=== PATIENT | male | born 1970 | race Caucasian/White ===

== ENCOUNTER → 2017-02-08 | Outpatient (CLI) | payer BC ==
[~2017-02-08] VITALS: Ht 182.9 cm; Wt 99.8 kg
[~2017-02-08] MED LIST: AMLO10TA2 PO; ATOR20TA66 PO; CARV25TA PO; FUROSEMIDE 40 MG/4 ML INJ (LASIX) IV ONE; FUROSEMIDE 40 MG/4 ML INJ (LASIX) ONE; INSU100V5 SQ; LISI10TA2 PO; NS IV 500 ML 500 ML IV ONE; diphenhydrAMINE 25 MG TAB (BENADRYL) PO ONE
[2017-02-08 16:07] VITALS: BP 123/71
[2017-02-08 16:25] VITALS: BP 123/68
[2017-02-08 16:26] VITALS: BP 137/76
[2017-02-08 18:00] VITALS: BP 132/75
[2017-02-08 18:02] VITALS: BP 132/75
[2017-02-08 20:36] VITALS: BP 143/76
[2017-02-08 21:33] LABS: BASOPHILS % (AUTO) 0 % (0-10); EOSINOPHILS # (AUTO) 0.1 10^3/uL (0.0-0.3); EOSINOPHILS % (AUTO) 2 % (0-10); LYMPHOCYTES # (AUTO) 0.5 X 10^3 (1.0-4.0); LYMPHOCYTES % (AUTO) 10 % (12-44); MEAN CORPUSCULAR HEMOGLOBIN 24 PG (25-34); MEAN CORPUSCULAR HGB CONC 31 G/DL (32-36); MEAN CORPUSCULAR VOLUME 76 FL (80-99); MEAN PLATELET VOLUME 9.2 FL (7.4-10.4); MONOCYTES # (AUTO) 0.5 X 10^3 (0.0-1.0); MONOCYTES % (AUTO) 10 % (0-12); NEUTROPHILS # (AUTO) 4.2 X 10^3 (1.8-7.8); NEUTROPHILS % (AUTO) 78 % (42-75); PLATELET COUNT 211 10^3/uL (130-400); RED CELL DISTRIBUTION WIDTH 16.8 % (10.0-14.5); WHITE BLOOD COUNT 5.4 10^3/uL (4.3-11.0)
[2017-02-09 00:26] VITALS: BP 143/76
== END ==
LOC: SDC 14:50
PROVIDERS: ATTEND Nurse Practitioner Family
DX: D64.9 Anemia, unspecified (principal)
CPT/HCPCS: 36415; 85025; 86850; 86900; 86901; 86920

== ENCOUNTER 2017-03-04 14:00 | Outpatient (RCR) | payer BC ==
[2017-02-28] MEDS: ACETAMINOPHEN 325 MG TABLET/CAPLET (TYLENOL) PO SCH (13:01)
[2017-02-28] MEDS: diphenhydrAMINE 50 MG/ML INJ (BENADRYL) IV SCH (13:01)
[2017-02-28 13:08] VITALS: BP 118/68
[2017-02-28] MEDS: SODIUM FERRIC GLUCONATE COMPLEX IV SCH ×2 (13:22)
[2017-02-28] MEDS: SODIUM CHLORIDE IV SCH ×2 (13:22)
[2017-03-02] MEDS: diphenhydrAMINE 50 MG/ML INJ (BENADRYL) IV SCH (14:10)
[2017-03-02] MEDS: ACETAMINOPHEN 325 MG TABLET/CAPLET (TYLENOL) PO SCH (14:10)
[2017-03-02] MEDS: SODIUM FERRIC GLUCONATE COMPLEX IV SCH ×2 (14:12)
[2017-03-02] MEDS: SODIUM CHLORIDE IV SCH ×2 (14:12)
[2017-03-02 14:14] VITALS: BP 118/68
[~2017-03-04] VITALS: Ht 182.9 cm; Wt 99.8 kg
[~2017-03-04 14:00] MED LIST changes: -FUROSEMIDE 40 MG/4 ML INJ (LASIX) IV ONE; -FUROSEMIDE 40 MG/4 ML INJ (LASIX) ONE; -NS IV 500 ML 500 ML IV ONE; -diphenhydrAMINE 25 MG TAB (BENADRYL) PO ONE
[2017-03-04] MEDS ORDERED: SODIUM CHLORIDE IV NR ×2 (14:05)
[2017-03-04] MEDS ORDERED: SODIUM FERRIC GLUCONATE COMPLEX IV NR ×2 (14:05)
[2017-03-04] MEDS: diphenhydrAMINE 50 MG/ML INJ (BENADRYL) IV SCH (14:08)
[2017-03-04] MEDS: ACETAMINOPHEN 325 MG TABLET/CAPLET (TYLENOL) PO SCH (14:08)
[2017-03-04 14:17] VITALS: BP 141/77
[2017-03-04 15:16] VITALS: BP 141/77
== END 2017-05-29 | disposition home or self-care (01) ==
LOC: SDC 14:00
PROVIDERS: ATTEND Nurse Practitioner Family
DX: D50.9 Iron deficiency anemia, unspecified (principal)
CPT/HCPCS: 96365; 96374

== ENCOUNTER → 2017-03-07 | Outpatient (CLI) | payer BC ==
--- NOTE | 2017-03-07 16:33 | Diagnostic Imaging Report ---
Renal ultrasound. INDICATION: Chronic renal disease. FINDINGS: The right kidney is 11.8 cm and the left kidney is 11.8 cm in length. There is no hydronephrosis or focal lesion. The urinary bladder appears unremarkable. There is a mufcjxoh-vw-ykrik amount of ascites. IMPRESSION: Cxtlenor-pc-ehrzk amount of ascites. No hydronephrosis. Dictated by: Dictated on workstation # [id number]
== END ==
LOC: RAD 14:47
PROVIDERS: ATTEND Nurse Practitioner
DX: R18.8 Other ascites (principal); N18.4 Chronic kidney disease, stage 4 (severe)
CPT/HCPCS: 76770

== ENCOUNTER → 2017-03-10 | Outpatient (CLI) | payer BC ==
[~2017-03-10] VITALS: Ht 182.9 cm; Wt 104.3 kg
[~2017-03-10] MED LIST changes: +LIDOCAINE 1% INJ 20 ML (XYLOCAINE) VIAL INJ ONE
[2017-03-10 11:34] VITALS: BP 123/69
[2017-03-10 11:47] VITALS: BP 116/68
[2017-03-10 12:02] VITALS: BP 103/51
[2017-03-10 12:08] VITALS: BP 94/48
[2017-03-10 12:12] VITALS: BP 110/63
[2017-03-10 12:18] LABS: ALBUMIN 3.7 G/DL (3.2-4.5); BILIRUBIN,TOTAL 1.1 MG/DL (0.1-1.0); CALCIUM 8.4 MG/DL (8.5-10.1); CREATININE SERUM 2.98 MG/DL (0.60-1.30); POTASSIUM 4.3 MMOL/L (3.6-5.0); TOTAL PROTEIN 6.3 G/DL (6.4-8.2)
--- NOTE | 2017-03-10 13:58 | Diagnostic Imaging Report ---
EXAMINATION: Ultrasound-guided paracentesis. INDICATION: Ascites. CONSENT: Informed consent was obtained from the patient. The risks, benefits, potential complications and alternatives were reviewed and all questions answered to the patient's satisfaction. The patient's vital signs, cardiac rhythm, and pulse oximetry with observed throughout the procedure by qualified nursing personnel. Sedation/Medications: None.. FINDINGS: ascites. PROCEDURE: After sterile preparation and draping, 1% lidocaine was utilized for local anesthesia. Following sterile preparation and local anesthetic and using 2 D real-time ultrasound for guidance, a 6.5 Fr sheath on a trocar needle was introduced into the peritoneal fluid collection in the right lower quadrant from an anterior approach. Images of needle position documented. Initial fluid return was thin, serous fluid. The sheath was advanced into the deepest fluid pocket and a total of 0.5 liters of michelle-colored fluid was then evacuated from the peritoneum without difficulty. Fluid was submitted to the laboratory. The patient's blood pressure decreased slightly with no symptoms however. Fluid aspiration was stopped when the blood pressure decreased. There is otherwise no complications. IMPRESSION: Successful ultrasound guided paracentesis, for a total of 0.5 L aspirated. No more fluid was aspirated as the blood pressure started to drop at this point. The patient however was asymptomatic. Dictated by: Dictated on workstation # [id number]
[2017-03-10 14:58] LABS: GLUCOSE,BODY FLUID 130 MG/DL; LDH,BODY FLUID 130 U/L; TOTAL PROTEIN,BODY FLUID 3.7 G/DL
== END ==
LOC: RAD 11:08
PROVIDERS: ATTEND Family Medicine
DX: R18.8 Other ascites (principal); D64.9 Anemia, unspecified
CPT/HCPCS: 36415; 49083; 76942; 80053; 82150; 82945; 83615; 84157; 85014; 85018; 87070; 87075; 87101; 87116; 87205; 88112; 88305; 89051

== ENCOUNTER → 2017-03-17 | Outpatient (CLI) | payer BC ==
[~2017-03-17] VITALS: Ht 182.9 cm; Wt 108.9 kg
[2017-03-17] VITALS (9 sets, daily range): BP systolic 120–149; BP diastolic 70–82
[~2017-03-17] MED LIST changes: +FUROSEMIDE 40 MG/4 ML INJ (LASIX) IV ONE; +FUROSEMIDE 40 MG/4 ML INJ (LASIX) ONE; -LIDOCAINE 1% INJ 20 ML (XYLOCAINE) VIAL INJ ONE; +NS IV 500 ML 500 ML IV ONE; +diphenhydrAMINE 25 MG TAB (BENADRYL) PO ONE; +diphenhydrAMINE 50 MG/ML INJ (BENADRYL) IV PRN
[2017-03-18 09:39] LABS: BASOPHILS % (AUTO) 1 % (0-10); EOSINOPHILS # (AUTO) 0.1 10^3/uL (0.0-0.3); EOSINOPHILS % (AUTO) 2 % (0-10); LYMPHOCYTES # (AUTO) 0.5 X 10^3 (1.0-4.0); LYMPHOCYTES % (AUTO) 11 % (12-44); MEAN CORPUSCULAR HEMOGLOBIN 24 PG (25-34); MEAN CORPUSCULAR HGB CONC 31 G/DL (32-36); MEAN CORPUSCULAR VOLUME 78 FL (80-99); MEAN PLATELET VOLUME 9.5 FL (7.4-10.4); MONOCYTES # (AUTO) 0.4 X 10^3 (0.0-1.0); MONOCYTES % (AUTO) 9 % (0-12); NEUTROPHILS # (AUTO) 3.7 X 10^3 (1.8-7.8); NEUTROPHILS % (AUTO) 78 % (42-75); PLATELET COUNT 205 10^3/uL (130-400); RED BLOOD COUNT 3.82 10^6/uL (4.35-5.85); RED CELL DISTRIBUTION WIDTH 18.6 % (10.0-14.5); WHITE BLOOD COUNT 4.8 10^3/uL (4.3-11.0)
== END ==
LOC: SDC 14:08
PROVIDERS: ATTEND Nurse Practitioner Family
DX: D64.9 Anemia, unspecified (principal)
CPT/HCPCS: 86850; 86900; 86901; 86920

== ENCOUNTER → 2017-03-29 | Outpatient (CLI) | payer BC ==
[~2017-03-29] MED LIST changes: -FUROSEMIDE 40 MG/4 ML INJ (LASIX) IV ONE; -FUROSEMIDE 40 MG/4 ML INJ (LASIX) ONE; -NS IV 500 ML 500 ML IV ONE; -diphenhydrAMINE 25 MG TAB (BENADRYL) PO ONE; -diphenhydrAMINE 50 MG/ML INJ (BENADRYL) IV PRN
--- NOTE | 2017-03-31 07:52 | ECHOCARDIOGRAPHY REPORT ---
DATE OF SERVICE: 03/29/2017 A 2D ECHOCARDIOGRAM REFERRING PHYSICIAN: Cheli Gaines MD MEASUREMENT: LVID end diastolic 6.3. IVS thickness 1.3. LVPW thickness 1.3. Left atrial diameter 6.0. Ejection fraction 45% to 50%. FINDINGS: 1. Technical quality is good. 2. The left ventricle is prominent with mild diffuse left ventricular hypokinesia. Systolic function is reduced. Estimated ejection fraction 45% to 50%. 3. The left atrium is dilated. No clot or thrombus were seen within the left atrium. 4. The right atrium and right ventricle are normal in size. No clot or thrombus were seen within the right side. 5. Aortic valve evaluation showed bicuspid aortic valve with mild aortic regurgitation, Doppler across the aortic valve estimated the peak gradient of 20 mmHg, mean gradient of 11 mmHg. No significant aortic valve stenosis was noted. The aortic root is measured at 5.8 cm, which is dilated. 6. Tricuspid valve is normal in morphology with mild tricuspid regurgitation noted by color Doppler flow. Doppler across the tricuspid valve estimated pulmonary artery pressure of 25 plus right atrial pressure. 7. Pulmonic valve is functioning normally. 8. No pericardial effusion. CONCLUSION: 1. Dilated aortic root measuring up to 5.8 cm. 2. Bicuspid aortic valve with mild aortic regurgitation, aortic valve sclerosis, no aortic stenosis. 3. Prominent left ventricle with mild diffuse left ventricular hypokinesia, estimated ejection fraction of 45% to 50%. 4. Mild mitral and tricuspid regurgitation. 5. Estimated pulmonary artery pressure of 35 mmHg. 6. I recommended evaluating CT scan of the thoracic aorta with IV contrast. Job ID: [id number] DocumentID: [id number] Dictated Date: 03/30/2017 14:58:09 Sort Supervisor Date: 03/30/2017 18:50:18 Dictated By: WESTON LEMA MD
== END ==
LOC: CARD 10:19
PROVIDERS: ATTEND Internal Medicine Cardiovascular Disease
DX: I25.10 Atherosclerotic heart disease of native coronary artery without angina pectoris (principal); I71.9 Aortic aneurysm of unspecified site, without rupture; I63.9 Cerebral infarction, unspecified; N18.9 Chronic kidney disease, unspecified; Z83.3 Family history of diabetes mellitus; Z82.49 Family history of ischemic heart disease and other diseases of the circulatory system

== ENCOUNTER 2017-04-05 12:15 | Outpatient (RCR) | payer BC ==
[2017-03-28 12:45] VITALS: BP 135/73
[2017-03-28] MEDS: ACETAMINOPHEN 325 MG TABLET/CAPLET (TYLENOL) PO SCH (13:02)
[2017-03-28] MEDS: IRON SUCROSE 250 MG/NS 100 ML IVPB IV SCH ×2 (13:19)
[2017-03-28] MEDS: diphenhydrAMINE 50 MG/ML INJ (BENADRYL) IV SCH (13:51)
[~2017-04-05] VITALS: Ht 182.9 cm; Wt 108.9 kg
[~2017-04-05 12:15] MED LIST changes: +ACETAMINOPHEN 325 MG TABLET/CAPLET (TYLENOL) ONE; +diphenhydrAMINE 50 MG/ML INJ (BENADRYL) ONE
[2017-04-05] MEDS: diphenhydrAMINE 50 MG/ML INJ (BENADRYL) IV SCH (12:45)
[2017-04-05] MEDS: ACETAMINOPHEN 325 MG TABLET/CAPLET (TYLENOL) PO SCH (12:45)
[2017-04-05] MEDS: IRON SUCROSE 250 MG/NS 100 ML IVPB IV SCH ×2 (12:46)
[2017-04-05 13:30] VITALS: BP 145/79
== END 2017-06-26 | disposition home or self-care (01) ==
LOC: SDC 12:15
PROVIDERS: ATTEND Family Medicine
DX: D50.9 Iron deficiency anemia, unspecified (principal)
CPT/HCPCS: 96365; 96374

== ENCOUNTER 2017-05-29 20:02 | Emergency (ER) | payer BC ==
[~2017-05-29] VITALS: Ht 182.9 cm; Wt 108.9 kg
[~2017-05-29 20:02] MED LIST changes: -ACETAMINOPHEN 325 MG TABLET/CAPLET (TYLENOL) ONE; -diphenhydrAMINE 50 MG/ML INJ (BENADRYL) ONE
[2017-05-29 21:38] LABS: BASOPHILS # (AUTO) 0.1 10^3/uL (0.0-0.1); BASOPHILS % (AUTO) 1 % (0-10); EOSINOPHILS # (AUTO) 0.1 10^3/uL (0.0-0.3); EOSINOPHILS % (AUTO) 1 % (0-10); LYMPHOCYTES # (AUTO) 0.5 X 10^3 (1.0-4.0); LYMPHOCYTES % (AUTO) 8 % (12-44); MEAN CORPUSCULAR HEMOGLOBIN 25 PG (25-34); MEAN CORPUSCULAR HGB CONC 32 G/DL (32-36); MEAN CORPUSCULAR VOLUME 79 FL (80-99); MEAN PLATELET VOLUME 9.9 FL (7.4-10.4); MONOCYTES # (AUTO) 0.7 X 10^3 (0.0-1.0); MONOCYTES % (AUTO) 11 % (0-12); NEUTROPHILS # (AUTO) 4.9 X 10^3 (1.8-7.8); NEUTROPHILS % (AUTO) 78 % (42-75); PLATELET COUNT 243 10^3/uL (130-400); RED BLOOD COUNT 3.99 10^6/uL (4.35-5.85); RED CELL DISTRIBUTION WIDTH 16.5 % (10.0-14.5); WHITE BLOOD COUNT 6.3 10^3/uL (4.3-11.0)
[2017-05-29 21:41] LABS: INR 1.4 (0.8-1.4); PROTHROMBIN TIME PATIENT 16.5 SEC (12.2-14.7)
[2017-05-29 21:53] LABS: ALBUMIN 3.4 GM/DL (3.2-4.5); BILIRUBIN,TOTAL 0.9 MG/DL (0.1-1.0); CALCIUM 7.7 MG/DL (8.5-10.1); CREATININE SERUM 3.12 MG/DL (0.60-1.30); MAGNESIUM 2.2 MG/DL (1.8-2.4); TOTAL PROTEIN 6.1 GM/DL (6.4-8.2)
[2017-05-29] MEDS ORDERED: LABETALOL HCL 20 MG/4 ML VIAL IV ONE (23:00)
--- NOTE | 2017-05-29 23:29 | ED General ---
General Chief Complaint: Respiratory Problems Stated Complaint: STOMACH BLOATING/HARD TO BREATHE/KIDNEY ISSUES Nursing Triage Note: PT STATES HE IS HAVING ABD SWELLING FOR THE PAST COUPLE OF DAYS. PT STATES HE HAS BEEN TAKING LASIX BUT THEY HAVEN'T BEEN WORKING. PT STATES SINCE ABD IS SWELLING PT HAVING DIFFICULTY BREATHING. Nursing Sepsis Screen: No Definite Risk Source of Information: Patient, Other (FEMALE FRIEND) History of Present Illness Time Seen by Provider: 21:00 Initial Comments PT ARRIVES VIA POV FROM HOME C/O ABDOMINAL SWELLING X 1 WEEK SWELLING IS MUCH WORSE THE LAST COUPLE OF DAYS PT STATES SWELLING IS CAUSING HIM TO HAVE DIFFICULTY BREATHING NO CHEST PAIN STATES HE HAS BEEN DRINKING LOTS OF WATER, BUT HAS HAD MINIMAL URINE OUTPUT PT STATES HE HAS GAINED 35 LBS IN THE LAST 1 1/2 WEEKS HAS BEEN LAYING DOWN AND ELEVATING HIS LEGS ALL WEEK, SO DOES NOT HAVE SIGNIFICANT SWELLING IN HIS LEGS--HAS ALL GONE TO HIS ABDOMEN + ORTHOPNEA PT HAS AN AUTOIMMUNE KIDNEY DISEASE / GLOMERULONEPHRITIS--PT DOES NOT KNOW NAME OF DISEASE SEES DR. Carlson" BUT IS NOT ON DIALYSIS YET CREATININE HAS BEEN IN THE 2.5-2.9 RANGE PT STATES HE HAD IT THIS BAD A COUPLE OF MONTHS AGO, AND PT TREATED HIMSELF WITH LARGE DOSES OF LASIX, AND LOST 25 LBS. OF FLUID. WAS THEN GIVEN RX FOR LASIX 20 MG 1 DAILY PRN SWELLING/WEIGHT GAIN PT STATES HE SAW [facility] ON Tuesday05/27/[address] BARILLAS'S OFFICE AND WAS TOLD TO TAKE 2 PILLS OF LASIX A DAY--TOOK 2 PILLS ON TUESDAY AND 2 PILLS ON TUESDAY, BUT NONE TODAY, BECAUSE IT WAS NOT HELPING AT ALL, AND GETTING WORSE. PCP: DR. BARILLAS AUTOMOTIVE TIRE TESTER: DR. LEMA TRACTION POWER ENGINEER: DR. Carlson" IN [place] [facility]AT[facility]: DR. BARRY Allergies and Home Medications Allergies Coded Allergies: No Known Drug Allergies (Unverified , 02/08/17) Home Medications Amlodipine Besylate 10 Mg Tablet, 10 MG PO DAILY, (Reported) Atorvastatin Calcium 20 Mg Tablet, 20 MG PO DAILY, (Reported) Carvedilol 25 Mg Tablet, 25 MG PO BID, (Reported) Insulin Determir 1,000 Units/10 Ml Soln, 12 UNITS SQ BID, (Reported) Lisinopril 10 Mg Tablet, 10 MG PO DAILY, (Reported) Constitutional: see HPI, No chills, No diaphoresis, No dizziness, No fever, weight gain EENTM: no symptoms reported Respiratory: see HPI, No cough, dyspnea on exertion, orthopnea, short of breath Cardiovascular: see HPI, No chest pain, edema, No palpitations, No syncope Gastrointestinal: see HPI, abdominal pain, No nausea, No vomiting Genitourinary: see HPI, decreased output Musculoskeletal: see HPI, other (LEG SWELLING) Skin: pruritus, rash (PT STATES RASH IS FROM SCRATCHING) Psychiatric/Neurological: No Symptoms Reported Hematologic/Lymphatic: Anemia Past Xusxyib-Ievven-Dgzjgw Hx Patient Social History Alcohol Use: Past History (HISTORY OF MODERATE USE IN PAST) Recreational Drug Use: No Smoking Status: Current Everyday Smoker (2 PPD) Type Used: Cigarettes 2nd Hand Smoke Exposure: No Recent Foreign Travel: No Contact w/Someone Who Travel: No Recent Infectious Disease Expo: No Recent Hopitalizations: No (PT GOES TO DR. THAO WEEKLY FOR BLOOD WORK) Seasonal Allergies Seasonal Allergies: Yes Surgeries HX Surgeries: Yes (EYE SURGERY FOR RETINAL BLEEDING BILATERALLY) Surgeries: Eye Surgery Respiratory Hx Respiratory Disorders: No Cardiovascular Hx Cardiac Disorders: Yes (THORACIC AORTIC ANEURYSM--NO REPAIR; STATES HE HAD A HEART ATTACK AFTER HIS STROKE AND/OR AFTER GI BLEED) Cardiac Disorders: Aneurysm, Chronic Edema/Swelling, Coronary Artery Disease, Heart Attack, High Cholesterol, Hypertension Neurological Hx Neurological Disorders: Yes (CVA WITH RIGHT SIDE PARALYSIS--RESOLVED) Neurological Disorders: Stroke Reproductive System Hx Reproductive Disorders: No Genitourinary Hx Genitourinary Disorders: Yes (CHRONIC RENAL FAILURE; UNKNOWN TYPE OF AUTO- IMMUNE GLOMERULONEPHRITIS) Genitourinary Disorders: Kidney Infection, Renal Failure Gastrointestinal Hx Gastrointestinal Disorders: Yes (GI BLEED FROM STEROIDS TO TREAT KIDNEY DISEASE) Gastrointestinal Disorders: Gastrointestinal Bleed, Ulcer Musculoskeletal Hx Musculoskeletal Disorders: No Endocrine Hx Endocrine Disorders: Yes Endocrine Disorders: Diabetes, Insulin dep HEENT HX ENT Disorders: Yes (RETINAL BLEEDS BILATERALLY) Cancer Hx Cancer: No Psychosocial Hx Psychiatric Problems: No Integumentary HX Skin/Integumentary Disorder: Yes Skin/Integumentary Disorders: Pruritis, Recent Skin Changes (RASH / ITCHING) Blood Transfusions Hx Blood Disorders: Yes (pt reports hx of several blood transfusion r/t ulcers / GI BLEEDS. ALSO ANEMIA DUE TO CHRONIC RENAL FAILURE) Adverse Reaction to a Blood Tr: No Physical Exam Vital Signs Vital Sign - Last 12Hours 05/29/17 20:26 Temp 97.8 Pulse 83 Resp 20 B/P (MAP) 140/79 Pulse Ox 99 O2 Delivery Room Air Capillary Refill : Less Than 3 Seconds General Appearance: Obese (ABDOMEN IS VERY LARGE AND DISTENDED), Other ( DYSPENIC ON MINMAL EXERTION) Respiratory: Decreased Breath Sounds (IN BASES ), Other (DYSPNEIC ON MINIMAL EXERTION) Cardiovascular: Regular Rate, Rhythm, No Murmur, Other (1+ EDEMA BILATERALY, WITH PULSES 1+ / 4 BILATERAL FEET) Gastrointestinal: Distended (MASSIVELY DISTENDED/ASCITES/FIRM. ), Tenderness ( MINIMAL DIFFUSE TENDERNESS), Other (UNABLE TO DETERMINE IF ORGANOMEGALY OR MASS IS PRESENT DUE TO ABDOMEN DISTENTION) Back: No CVA Tenderness Extremity: Normal Range of Motion, Non Tender, Pedal Edema (1+ BILATERALLY) Neurologic/Psychiatric: Alert, Oriented x3, No Motor/Sensory Deficits, Normal Mood/Affect, adjunct professor II-XII Norm as Tested Skin: Warm/Dry, Pallor (SALLOW), Rash (HAS MULTIPLE ERYTHEMATOUS PAPULES TO ABDOMEN AND CHEST--PT STATES IS FROM SCRATCHING. ) Progress/Results/Core Measures Results/Orders Lab Results Laboratory Tests Test 05/29/17 21:12 05/30/17 00:15 Range/Units White Blood Count 6.3 4.3-11.0 10^3/uL Red Blood Count 3.99 L 4.35-5.85 10^6/uL Hemoglobin 10.1 L 13.3-17.7 G/DL Hematocrit 32 L 40-54 % Mean Corpuscular Volume 79 L 80-99 FL Mean Corpuscular Hemoglobin 25 25-34 PG Mean Corpuscular Hemoglobin Concent 32 32-36 G/DL Red Cell Distribution Width 16.5 H 10.0-14.5 % Platelet Count 243 130-400 10^3/uL Mean Platelet Volume 9.9 7.4-10.4 FL Neutrophils (%) (Auto) 78 H 42-75 % Lymphocytes (%) (Auto) 8 L 12-44 % Monocytes (%) (Auto) 11 0-12 % Eosinophils (%) (Auto) 1 0-10 % Basophils (%) (Auto) 1 0-10 % Neutrophils # (Auto) 4.9 1.8-7.8 X 10^3 Lymphocytes # (Auto) 0.5 L 1.0-4.0 X 10^3 Monocytes # (Auto) 0.7 0.0-1.0 X 10^3 Eosinophils # (Auto) 0.1 0.0-0.3 10^3/uL Basophils # (Auto) 0.1 0.0-0.1 10^3/uL Prothrombin Time 16.5 H 12.2-14.7 SEC INR Comment 1.4 0.8-1.4 Activated Partial Thromboplast Time 30 24-35 SEC Sodium Level 139 135-145 MMOL/L Potassium Level 4.0 3.6-5.0 MMOL/L Chloride Level 113 H 98-107 MMOL/L Carbon Dioxide Level 12 L 21-32 MMOL/L Anion Gap 14 5-14 MMOL/L Blood Urea Nitrogen 84 H 7-18 MG/DL Creatinine 3.12 H 0.60-1.30 MG/DL Estimat Glomerular Filtration Rate 22 BUN/Creatinine Ratio 27 Glucose Level 144 H 70-105 MG/DL Calcium Level 7.7 L 8.5-10.1 MG/DL Magnesium Level 2.2 1.8-2.4 MG/DL Total Bilirubin 0.9 0.1-1.0 MG/DL Aspartate Amino Transf (AST/SGOT) 12 5-34 U/L Alanine Aminotransferase (ALT/SGPT) 12 0-55 U/L Alkaline Phosphatase 110 40-136 U/L Total Protein 6.1 L 6.4-8.2 GM/DL Albumin 3.4 3.2-4.5 GM/DL Amylase Level 41 25-125 U/L Lipase 28 8-78 U/L Urine Color YELLOW Urine Clarity CLEAR Urine pH 5 5-9 Urine Specific [place] 1.020 1.016-1.022 Urine Protein 3+ H NEGATIVE Urine Glucose (UA) NEGATIVE NEGATIVE Urine Ketones NEGATIVE NEGATIVE Urine Nitrite NEGATIVE NEGATIVE Urine Bilirubin NEGATIVE NEGATIVE Urine Urobilinogen NORMAL NORMAL MG/DL Urine Leukocyte Esterase 1+ H NEGATIVE Urine RBC (Auto) 3+ H NEGATIVE Urine RBC RARE /HPF Urine WBC 5-10 H /HPF Urine Squamous Epithelial Cells RARE /HPF Urine Crystals NONE /LPF Urine Bacteria TRACE /HPF Urine Casts PRESENT /LPF Urine Hyaline Casts RARE /LPF Urine Mucus NEGATIVE /LPF Urine Other FEW SPERM H /HPF Urine Yeast FEW H /HPF Urine Culture Indicated YES My Orders Orders - JD,JATIN K DO Saline Lock/Iv-Start (05/29/17 21:25) Amylase (05/29/17 21:25) Cbc With Automated Diff (05/29/17 21:25) Comprehensive Metabolic Panel (05/29/17 21:25) Lipase (05/29/17 21:25) Magnesium (05/29/17 21:25) Protime With Inr (05/29/17 21:25) Partial Thromboplastin Time (05/29/17 21:25) Ua Culture If Indicated (05/29/17 21:25) Acute Abd Series (05/29/17 21:25) Labetalol Injection (Normodyne Injection (05/29/17 23:00) Nitroglycerin Ointment (Nitrobid Ointme (05/30/17 00:00) Labetalol Injection (Normodyne Injection (05/30/17 00:30) Urine Culture (05/30/17 00:15) Medications Given in ED Current Medications Medications Dose Ordered Sig/Shima Route Start Time Stop Time Status Last Admin Dose Admin Labetalol HCl 20 mg ONCE ONCE IV 05/29/17 23:00 05/29/17 23:01 DC 05/29/17 23:06 20 MG Labetalol HCl 20 mg ONCE ONCE IV 05/30/17 00:30 05/30/17 00:31 DC 05/30/17 00:25 20 MG Nitroglycerin 2 inch ONCE ONCE TOP 05/30/17 00:00 05/30/17 00:01 DC 05/29/17 23:51 2 INCH Vital Signs/I&O Vital Sign - Last 12Hours 05/29/17 05/30/17 20:26 00:35 Temp 97.8 Pulse 83 75 Resp 20 15 B/P (MAP) 140/79 129/81 Pulse Ox 99 97 O2 Delivery Room Air Room Air Blood Pressure Mean: 99 Progress Note : Progress Note BP DOWN WITH MEDICATIONS UNEVENTFUL ER STAY Diagnostic Imaging Comments ACUTE ABDOMEN XRAYS--CHF, ASCITES. NO BOWEL OBSTRUCTION--PENDING RADIOLOGIST REVIEW Reviewed: Reviewed by Me Departure Communication Progress Notes 2253--SPOKE WITH DR. BARILLAS, ADVISES TRANSFER PT NEEDS NEPHROLOGY SERVICES AVAILABLE 2299--CALLED [facility] DIRECT CALL, MESSAGE LEFT [id number]--SPOKE WITH [facility] DIRECT CALL. PAGING TRACTION POWER ENGINEER 2309--SPOKE WITH DR. DELGADILLO, HE RECOMMENDS HOSPITALIST ADMIT 2320--SPOKE WITH DR. MATIAS, HOSPITALIST. HE ACCEPTS PT FOR TRANSFER. DOES NOT ADVISE ANY FURTHER TREATMENT AT THIS TIME. Impression Impression: Primary Impression: Renal failure (ARF), acute on chronic Additional Impressions: Fluid overload Uncontrolled hypertension Disposition: 02 XFER SHT-TRM HOSP Condition: Improved Departure-Patient Inst. Referrals: ESME BARILLAS MD (PCP/Family) Primary Care Physician JATIN MILES DO May 29, 2017 23:29
[2017-05-30] MEDS ORDERED: NITROGLYCERIN 2% OINT 1 GM UNIT DOSE PACKET TOP ONE
[2017-05-30 00:22] LABS: BILIRUBIN,URINE NEGATIVE (NEGATIVE); KETONES,URINE NEGATIVE (NEGATIVE); LEUKOCYTE ESTERASE ,URINE 1+ (NEGATIVE); NITRITE,URINE NEGATIVE (NEGATIVE); PH,URINE 5 (5-9); PROTEIN,URINE 3+ (NEGATIVE); UROBILINOGEN,URINE NORMAL (NORMAL)
[2017-05-30] MEDS ORDERED: LABETALOL HCL 20 MG/4 ML VIAL IV ONE (00:30)
[2017-05-30 00:31] LABS: HYALINE CASTS, URINE RARE /LPF; SQUAMOUS EPITHELIAL CELL,UR RARE /HPF
[2017-05-30 00:32] LABS: YEAST,URINE FEW /HPF
[2017-05-30 00:45] VITALS: BP 129/81
--- NOTE | 2017-05-30 07:54 | Diagnostic Imaging Report ---
Indication: Abdominal pain and bloating over the last several days. Discussion: AP view of the chest and supine and upright views of the abdomen were obtained, no comparison. Borderline cardiomegaly is noted. Mild prominence of the central pulmonary vascularity. No nora heart failure identified. No focal consolidation, pleural fluid, or pneumothorax. No evidence of pneumatosis or pneumoperitoneum. There is gas and stool noted throughout the colon. No significant constipation. No obstruction. No abnormal small bowel loops identified. No acute osseous abnormality or pathologic calcification identified. Impression: 1. No acute cardiopulmonary process. 2. Unremarkable bowel gas pattern. Dictated by: Dictated on workstation # [id number]
== END 2017-05-30 00:47 | disposition short-term general hospital (02) ==
LOC: EDUNIT# 20:02 → ER 20:04
DX: N17.9 Acute kidney failure, unspecified (principal); E11.22 Type 2 diabetes mellitus with diabetic chronic kidney disease; I12.9 Hypertensive chronic kidney disease with stage 1 through stage 4 chronic kidney disease, or unspecified chronic kidney disease; N18.9 Chronic kidney disease, unspecified; E78.00 Pure hypercholesterolemia, unspecified; I25.10 Atherosclerotic heart disease of native coronary artery without angina pectoris; I25.2 Old myocardial infarction; Z79.4 Long term (current) use of insulin; Z86.73 Personal history of transient ischemic attack (TIA), and cerebral infarction without residual deficits; Z98.890 Other specified postprocedural states
CPT/HCPCS: 36415; 74022; 80053; 81000; 82150; 83690; 83735; 85025; 85610; 85730; 87088; 96374; 96376

== ENCOUNTER → 2017-06-14 | Outpatient (CLI) | payer BC ==
[2017-06-14 14:34] LABS: BILIRUBIN,URINE NEGATIVE (NEGATIVE); KETONES,URINE NEGATIVE (NEGATIVE); LEUKOCYTE ESTERASE ,URINE NEGATIVE (NEGATIVE); NITRITE,URINE NEGATIVE (NEGATIVE); PH,URINE 5 (5-9); PROTEIN,URINE 2+ (NEGATIVE); UROBILINOGEN,URINE NORMAL (NORMAL)
[2017-06-14 14:51] LABS: ALBUMIN 3.5 GM/DL (3.2-4.5); CALCIUM 8.5 MG/DL (8.5-10.1); CREATININE SERUM 3.41 MG/DL (0.60-1.30); PHOSPHORUS 4.7 MG/DL (2.3-4.7); POTASSIUM 4.2 MMOL/L (3.6-5.0); URIC ACID 12.4 MG/DL (2.6-7.2)
[2017-06-14 14:55] LABS: PROTEIN/CREATININE RATIO 0.67
[2017-06-15 07:03] LABS: CALCIUM PARA THYROID HORMONE 8.3 mg/dL (8.5-10.5)
== END ==
LOC: LAB 13:51
PROVIDERS: ATTEND Internal Medicine Nephrology
DX: I12.9 Hypertensive chronic kidney disease with stage 1 through stage 4 chronic kidney disease, or unspecified chronic kidney disease (principal); N18.4 Chronic kidney disease, stage 4 (severe); R80.9 Proteinuria, unspecified; E11.29 Type 2 diabetes mellitus with other diabetic kidney complication; E83.51 Hypocalcemia; E87.2 Acidosis; I50.9 Heart failure, unspecified; E88.09 Other disorders of plasma-protein metabolism, not elsewhere classified; D50.9 Iron deficiency anemia, unspecified; E78.5 Hyperlipidemia, unspecified; R60.9 Edema, unspecified; K28.9 Gastrojejunal ulcer, unspecified as acute or chronic, without hemorrhage or perforation; M35.9 Systemic involvement of connective tissue, unspecified
CPT/HCPCS: 36415; 80069; 81000; 82306; 82570; 83970; 84156; 84550

== ENCOUNTER 2017-07-18 11:47 | Outpatient (RCR) | payer BC ==
[2017-04-21 11:18] LABS: BASOPHILS % (AUTO) 1 % (0-10); EOSINOPHILS # (AUTO) 0.1 10^3/uL (0.0-0.3); EOSINOPHILS % (AUTO) 2 % (0-10); LYMPHOCYTES # (AUTO) 0.5 X 10^3 (1.0-4.0); LYMPHOCYTES % (AUTO) 11 % (12-44); MEAN CORPUSCULAR HEMOGLOBIN 25 PG (25-34); MEAN CORPUSCULAR HGB CONC 31 G/DL (32-36); MEAN CORPUSCULAR VOLUME 81 FL (80-99); MEAN PLATELET VOLUME 9.6 FL (7.4-10.4); MONOCYTES # (AUTO) 0.3 X 10^3 (0.0-1.0); MONOCYTES % (AUTO) 7 % (0-12); NEUTROPHILS # (AUTO) 3.4 X 10^3 (1.8-7.8); NEUTROPHILS % (AUTO) 80 % (42-75); PLATELET COUNT 180 10^3/uL (130-400); WHITE BLOOD COUNT 4.2 10^3/uL (4.3-11.0)
[2017-04-21 11:21] LABS: RETICULOCYTE % 1.61 % (0.50-2.40)
[2017-04-21 11:46] LABS: ALBUMIN 3.9 GM/DL (3.2-4.5); BILIRUBIN,TOTAL 1.1 MG/DL (0.1-1.0); CALCIUM 8.4 MG/DL (8.5-10.1); CREATININE SERUM 2.97 MG/DL (0.60-1.30); ICTERUS 0.8 (0-1.9); POTASSIUM 4.4 MMOL/L (3.6-5.0); TOTAL PROTEIN 5.9 GM/DL (6.4-8.2)
[2017-04-25 13:52] LABS: BASOPHILS # (AUTO) 0.1 10^3/uL (0.0-0.1); BASOPHILS % (AUTO) 1 % (0-10); EOSINOPHILS # (AUTO) 0.1 10^3/uL (0.0-0.3); EOSINOPHILS % (AUTO) 2 % (0-10); LYMPHOCYTES # (AUTO) 0.5 X 10^3 (1.0-4.0); LYMPHOCYTES % (AUTO) 11 % (12-44); MEAN CORPUSCULAR HEMOGLOBIN 25 PG (25-34); MEAN CORPUSCULAR HGB CONC 31 G/DL (32-36); MEAN CORPUSCULAR VOLUME 82 FL (80-99); MEAN PLATELET VOLUME 9.2 FL (7.4-10.4); MONOCYTES # (AUTO) 0.4 X 10^3 (0.0-1.0); MONOCYTES % (AUTO) 10 % (0-12); NEUTROPHILS # (AUTO) 3.1 X 10^3 (1.8-7.8); NEUTROPHILS % (AUTO) 76 % (42-75); PLATELET COUNT 178 10^3/uL (130-400); RED BLOOD COUNT 3.57 10^6/uL (4.35-5.85); WHITE BLOOD COUNT 4.1 10^3/uL (4.3-11.0)
[2017-05-02 12:34] LABS: BASOPHILS % (AUTO) 1 % (0-10); EOSINOPHILS # (AUTO) 0.1 10^3/uL (0.0-0.3); EOSINOPHILS % (AUTO) 2 % (0-10); LYMPHOCYTES # (AUTO) 0.4 X 10^3 (1.0-4.0); LYMPHOCYTES % (AUTO) 10 % (12-44); MEAN CORPUSCULAR HEMOGLOBIN 25 PG (25-34); MEAN CORPUSCULAR HGB CONC 31 G/DL (32-36); MEAN CORPUSCULAR VOLUME 81 FL (80-99); MEAN PLATELET VOLUME 8.9 FL (7.4-10.4); MONOCYTES # (AUTO) 0.4 X 10^3 (0.0-1.0); MONOCYTES % (AUTO) 9 % (0-12); NEUTROPHILS # (AUTO) 3.3 X 10^3 (1.8-7.8); NEUTROPHILS % (AUTO) 79 % (42-75); PLATELET COUNT 180 10^3/uL (130-400); RED BLOOD COUNT 3.49 10^6/uL (4.35-5.85); RED CELL DISTRIBUTION WIDTH 17.5 % (10.0-14.5); WHITE BLOOD COUNT 4.2 10^3/uL (4.3-11.0)
[2017-05-16 13:45] LABS: BASOPHILS % (AUTO) 1 % (0-10); EOSINOPHILS # (AUTO) 0.1 10^3/uL (0.0-0.3); EOSINOPHILS % (AUTO) 1 % (0-10); LYMPHOCYTES # (AUTO) 0.5 X 10^3 (1.0-4.0); LYMPHOCYTES % (AUTO) 11 % (12-44); MEAN CORPUSCULAR HEMOGLOBIN 25 PG (25-34); MEAN CORPUSCULAR HGB CONC 31 G/DL (32-36); MEAN CORPUSCULAR VOLUME 81 FL (80-99); MEAN PLATELET VOLUME 9.3 FL (7.4-10.4); MONOCYTES # (AUTO) 0.5 X 10^3 (0.0-1.0); MONOCYTES % (AUTO) 11 % (0-12); NEUTROPHILS # (AUTO) 3.2 X 10^3 (1.8-7.8); NEUTROPHILS % (AUTO) 76 % (42-75); PLATELET COUNT 218 10^3/uL (130-400); RED CELL DISTRIBUTION WIDTH 17.3 % (10.0-14.5); WHITE BLOOD COUNT 4.2 10^3/uL (4.3-11.0)
[2017-06-06 13:41] LABS: BASOPHILS % (AUTO) 1 % (0-10); EOSINOPHILS # (AUTO) 0.1 10^3/uL (0.0-0.3); EOSINOPHILS % (AUTO) 1 % (0-10); LYMPHOCYTES # (AUTO) 0.5 X 10^3 (1.0-4.0); LYMPHOCYTES % (AUTO) 9 % (12-44); MEAN CORPUSCULAR HEMOGLOBIN 25 PG (25-34); MEAN CORPUSCULAR HGB CONC 32 G/DL (32-36); MEAN CORPUSCULAR VOLUME 79 FL (80-99); MEAN PLATELET VOLUME 9.5 FL (7.4-10.4); MONOCYTES # (AUTO) 0.6 X 10^3 (0.0-1.0); MONOCYTES % (AUTO) 10 % (0-12); NEUTROPHILS # (AUTO) 4.7 X 10^3 (1.8-7.8); NEUTROPHILS % (AUTO) 80 % (42-75); PLATELET COUNT 213 10^3/uL (130-400); RED BLOOD COUNT 4.02 10^6/uL (4.35-5.85); RED CELL DISTRIBUTION WIDTH 16.4 % (10.0-14.5); RETICULOCYTE % 1.14 % (0.50-2.40); WHITE BLOOD COUNT 5.8 10^3/uL (4.3-11.0)
[2017-06-06 14:09] LABS: ALBUMIN 3.6 GM/DL (3.2-4.5); BILIRUBIN,TOTAL 1.1 MG/DL (0.1-1.0); CALCIUM 8.3 MG/DL (8.5-10.1); POTASSIUM 4.5 MMOL/L (3.6-5.0); TOTAL PROTEIN 6.1 GM/DL (6.4-8.2)
[2017-06-14 14:04] LABS: BASOPHILS % (AUTO) 1 % (0-10); EOSINOPHILS # (AUTO) 0.1 10^3/uL (0.0-0.3); EOSINOPHILS % (AUTO) 2 % (0-10); LYMPHOCYTES # (AUTO) 0.5 X 10^3 (1.0-4.0); LYMPHOCYTES % (AUTO) 11 % (12-44); MEAN CORPUSCULAR HEMOGLOBIN 26 PG (25-34); MEAN CORPUSCULAR HGB CONC 31 G/DL (32-36); MEAN CORPUSCULAR VOLUME 82 FL (80-99); MEAN PLATELET VOLUME 9.4 FL (7.4-10.4); MONOCYTES # (AUTO) 0.4 X 10^3 (0.0-1.0); MONOCYTES % (AUTO) 9 % (0-12); NEUTROPHILS # (AUTO) 3.4 X 10^3 (1.8-7.8); NEUTROPHILS % (AUTO) 76 % (42-75); PLATELET COUNT 220 10^3/uL (130-400); RED BLOOD COUNT 3.92 10^6/uL (4.35-5.85); RED CELL DISTRIBUTION WIDTH 16.4 % (10.0-14.5); WHITE BLOOD COUNT 4.4 10^3/uL (4.3-11.0)
[2017-07-04 11:08] LABS: BASOPHILS % (AUTO) 1 % (0-10); EOSINOPHILS # (AUTO) 0.1 10^3/uL (0.0-0.3); EOSINOPHILS % (AUTO) 2 % (0-10); LYMPHOCYTES # (AUTO) 0.6 X 10^3 (1.0-4.0); LYMPHOCYTES % (AUTO) 13 % (12-44); MEAN CORPUSCULAR HEMOGLOBIN 25 PG (25-34); MEAN CORPUSCULAR HGB CONC 31 G/DL (32-36); MEAN CORPUSCULAR VOLUME 81 FL (80-99); MEAN PLATELET VOLUME 9.4 FL (7.4-10.4); MONOCYTES # (AUTO) 0.5 X 10^3 (0.0-1.0); MONOCYTES % (AUTO) 10 % (0-12); NEUTROPHILS # (AUTO) 3.4 X 10^3 (1.8-7.8); NEUTROPHILS % (AUTO) 75 % (42-75); PLATELET COUNT 234 10^3/uL (130-400); RED BLOOD COUNT 3.99 10^6/uL (4.35-5.85); RED CELL DISTRIBUTION WIDTH 15.6 % (10.0-14.5); WHITE BLOOD COUNT 4.6 10^3/uL (4.3-11.0)
[~2017-07-18 11:47] MED LIST changes: +DARBEPOETIN 25 MCG/ML (CANCER CTR) 1 ML VIAL SC SCH
[2017-07-18 12:07] LABS: BASOPHILS % (AUTO) 1 % (0-10); EOSINOPHILS # (AUTO) 0.1 10^3/uL (0.0-0.3); EOSINOPHILS % (AUTO) 1 % (0-10); LYMPHOCYTES # (AUTO) 0.5 X 10^3 (1.0-4.0); LYMPHOCYTES % (AUTO) 9 % (12-44); MEAN CORPUSCULAR HEMOGLOBIN 25 PG (25-34); MEAN CORPUSCULAR HGB CONC 31 G/DL (32-36); MEAN CORPUSCULAR VOLUME 81 FL (80-99); MEAN PLATELET VOLUME 9.7 FL (7.4-10.4); MONOCYTES # (AUTO) 0.6 X 10^3 (0.0-1.0); MONOCYTES % (AUTO) 10 % (0-12); NEUTROPHILS # (AUTO) 4.7 X 10^3 (1.8-7.8); NEUTROPHILS % (AUTO) 80 % (42-75); PLATELET COUNT 228 10^3/uL (130-400); RED BLOOD COUNT 4.15 10^6/uL (4.35-5.85); RED CELL DISTRIBUTION WIDTH 16.4 % (10.0-14.5); WHITE BLOOD COUNT 5.9 10^3/uL (4.3-11.0)
[2017-07-18 12:33] LABS: ALBUMIN 3.7 GM/DL (3.2-4.5); BILIRUBIN,TOTAL 1.5 MG/DL (0.1-1.0); CALCIUM 8.9 MG/DL (8.5-10.1); CREATININE SERUM 3.7 MG/DL (0.60-1.30); POTASSIUM 4.4 MMOL/L (3.6-5.0); TOTAL PROTEIN 6.9 GM/DL (6.4-8.2)
== END 2017-07-20 | disposition home or self-care (01) ==
LOC: ONC 11:47
PROVIDERS: ATTEND Internal Medicine Hematology & Oncology
DX: D63.1 Anemia in chronic kidney disease (principal); N18.4 Chronic kidney disease, stage 4 (severe); I13.0 Hypertensive heart and chronic kidney disease with heart failure and stage 1 through stage 4 chronic kidney disease, or unspecified chronic kidney disease; I50.9 Heart failure, unspecified; I25.10 Atherosclerotic heart disease of native coronary artery without angina pectoris; E11.9 Type 2 diabetes mellitus without complications; I71.4 Abdominal aortic aneurysm, without rupture; F17.210 Nicotine dependence, cigarettes, uncomplicated; Z86.73 Personal history of transient ischemic attack (TIA), and cerebral infarction without residual deficits; Z79.4 Long term (current) use of insulin; Z83.3 Family history of diabetes mellitus; Z82.49 Family history of ischemic heart disease and other diseases of the circulatory system
CPT/HCPCS: 36415; 80053; 82728; 83540; 85025; 85045; 96372; 99214

== ENCOUNTER → 2017-07-19 | Outpatient (CLI) | payer BC ==
[~2017-07-19] VITALS: Ht 182.9 cm; Wt 108.9 kg
[~2017-07-19] MED LIST changes: -DARBEPOETIN 25 MCG/ML (CANCER CTR) 1 ML VIAL SC SCH; +LIDOCAINE 1% INJ 20 ML (XYLOCAINE) VIAL INJ ONE
[2017-07-19 08:11] VITALS: BP 128/97
[2017-07-19 11:24] VITALS: BP 133/85
--- NOTE | 2017-07-19 11:38 | Diagnostic Imaging Report ---
EXAMINATION: Ultrasound-guided paracentesis. INDICATION: Ascites. CONSENT: Informed consent was obtained from the patient. The risks, benefits, potential complications and alternatives were reviewed and all questions answered to the patient's satisfaction. The patient's vital signs, cardiac rhythm, and pulse oximetry with observed throughout the procedure by qualified nursing personnel. Sedation/Medications: None.. FINDINGS: ascites. PROCEDURE: After sterile preparation and draping, 1% lidocaine was utilized for local anesthesia. Following sterile preparation and local anesthetic and using 2 D real-time ultrasound for guidance, a 6.5 Fr sheath on a trocar needle was introduced into the peritoneal fluid collection in the right lower quadrant from an anterior approach. Images of needle position documented. Initial fluid return was thin, serous fluid. The sheath was advanced into the deepest fluid pocket and a total of 12 liters of michelle-colored fluid was then evacuated from the peritoneum without difficulty. Fluid was submitted to the laboratory. No immediate complications. IMPRESSION: Successful ultrasound guided paracentesis. Dictated by: Dictated on workstation # [id number]
== END ==
LOC: RAD 08:01
PROVIDERS: ATTEND Family Medicine
DX: R18.8 Other ascites (principal); I12.9 Hypertensive chronic kidney disease with stage 1 through stage 4 chronic kidney disease, or unspecified chronic kidney disease; N18.4 Chronic kidney disease, stage 4 (severe)
CPT/HCPCS: 49083

== ENCOUNTER → 2017-07-29 | Outpatient (CLI) | payer BC ==
[~2017-07-29] VITALS: Ht 182.9 cm; Wt 108.9 kg
[2017-07-29 08:04] VITALS: BP 130/78
[2017-07-29 10:32] VITALS: BP 116/74
== END ==
LOC: RAD 08:01
PROVIDERS: ATTEND Family Medicine
DX: R18.8 Other ascites (principal); N18.9 Chronic kidney disease, unspecified
CPT/HCPCS: 49083

== ENCOUNTER 2017-08-01 09:22 | Outpatient (RCR) | payer BC ==
[~2017-08-01 09:22] MED LIST changes: +DARBEPOETIN 25 MCG/ML (CANCER CTR) 1 ML VIAL SC SCH; -LIDOCAINE 1% INJ 20 ML (XYLOCAINE) VIAL INJ ONE
[2017-08-01 09:44] LABS: BASOPHILS # (AUTO) 0.1 10^3/uL (0.0-0.1); BASOPHILS % (AUTO) 1 % (0-10); EOSINOPHILS # (AUTO) 0.1 10^3/uL (0.0-0.3); EOSINOPHILS % (AUTO) 2 % (0-10); LYMPHOCYTES # (AUTO) 0.6 X 10^3 (1.0-4.0); LYMPHOCYTES % (AUTO) 9 % (12-44); MEAN CORPUSCULAR HEMOGLOBIN 25 PG (25-34); MEAN CORPUSCULAR HGB CONC 32 G/DL (32-36); MEAN CORPUSCULAR VOLUME 80 FL (80-99); MEAN PLATELET VOLUME 10.1 FL (7.4-10.4); MONOCYTES # (AUTO) 0.6 X 10^3 (0.0-1.0); MONOCYTES % (AUTO) 10 % (0-12); NEUTROPHILS # (AUTO) 4.9 X 10^3 (1.8-7.8); NEUTROPHILS % (AUTO) 78 % (42-75); PLATELET COUNT 216 10^3/uL (130-400); RED BLOOD COUNT 4.62 10^6/uL (4.35-5.85); RED CELL DISTRIBUTION WIDTH 16.8 % (10.0-14.5); WHITE BLOOD COUNT 6.2 10^3/uL (4.3-11.0)
[2017-08-01 10:17] LABS: ALBUMIN 3.1 GM/DL (3.2-4.5); BILIRUBIN,TOTAL 0.7 MG/DL (0.1-1.0); CALCIUM 7.8 MG/DL (8.5-10.1); CREATININE SERUM 3.35 MG/DL (0.60-1.30); POTASSIUM 3.8 MMOL/L (3.6-5.0); TOTAL PROTEIN 5.6 GM/DL (6.4-8.2)
== END 2017-08-06 | disposition home or self-care (01) ==
LOC: ONC 09:22
PROVIDERS: ATTEND Internal Medicine Hematology & Oncology
DX: D63.1 Anemia in chronic kidney disease (principal); N18.4 Chronic kidney disease, stage 4 (severe); I13.0 Hypertensive heart and chronic kidney disease with heart failure and stage 1 through stage 4 chronic kidney disease, or unspecified chronic kidney disease; I50.9 Heart failure, unspecified; I25.10 Atherosclerotic heart disease of native coronary artery without angina pectoris; E11.9 Type 2 diabetes mellitus without complications; I71.4 Abdominal aortic aneurysm, without rupture; F17.210 Nicotine dependence, cigarettes, uncomplicated; Z86.73 Personal history of transient ischemic attack (TIA), and cerebral infarction without residual deficits; Z79.4 Long term (current) use of insulin; Z83.3 Family history of diabetes mellitus; Z82.49 Family history of ischemic heart disease and other diseases of the circulatory system
CPT/HCPCS: 36415; 80053; 82728; 85025; 99213

== ENCOUNTER 2017-08-03 08:00 | Outpatient (RCR) | payer BC ==
[~2017-08-03] VITALS: Ht 182.9 cm; Wt 108.9 kg
[~2017-08-03 08:00] MED LIST changes: -DARBEPOETIN 25 MCG/ML (CANCER CTR) 1 ML VIAL SC SCH
[2017-08-03] MEDS ORDERED: LIDOCAINE 1% INJ 20 ML (XYLOCAINE) VIAL ONE (08:02)
[2017-08-03 08:14] VITALS: BP 147/93
[2017-08-03] MEDS ORDERED: LIDOCAINE 1% INJ 20 ML (XYLOCAINE) VIAL INJ ONE (08:15)
[2017-08-03] MEDS: ALBUMIN 25% 25 GM/100 ML 100 ML IV SCH ×2 (08:42→09:17)
[2017-08-03 09:40] VITALS: BP 110/70
--- NOTE | 2017-08-03 10:16 | Diagnostic Imaging Report ---
EXAMINATION: Ultrasound-guided paracentesis. INDICATION: Ascites. CONSENT: Informed consent was obtained from the patient. The risks, benefits, potential complications and alternatives were reviewed and all questions answered to the patient's satisfaction. The patient's vital signs, cardiac rhythm, and pulse oximetry with observed throughout the procedure by qualified nursing personnel. Sedation/Medications: Albumin 50 gm IV. FINDINGS: ascites. PROCEDURE: After sterile preparation and draping, 1% lidocaine was utilized for local anesthesia. Following sterile preparation and local anesthetic and using 2 D real-time ultrasound for guidance, a 6.5 Fr sheath on a trocar needle was introduced into the peritoneal fluid collection in the right lower quadrant from an anterior approach. Images of needle position documented. Initial fluid return was thin, serous fluid. The sheath was advanced into the deepest fluid pocket and a total of 11.5 liters of michelle-colored fluid was then evacuated from the peritoneum without difficulty. Fluid was submitted to the laboratory. No immediate complications. IMPRESSION: Successful ultrasound guided paracentesis. . Dictated by: Dictated on workstation # [id number]
== END 2017-08-06 | disposition home or self-care (01) ==
LOC: RAD 08:00
PROVIDERS: ATTEND Family Medicine
DX: R18.8 Other ascites (principal); N19 Unspecified kidney failure
CPT/HCPCS: 49083

== ENCOUNTER → 2017-08-09 | Outpatient (CLI) | payer MEDICARE, OTHER ==
--- NOTE | 2017-08-09 11:31 | Diagnostic Imaging Report ---
PROCEDURE: CT chest without contrast. TECHNIQUE: Multiple contiguous axial images were obtained through the chest without the use of intravenous contrast. INDICATION: Dilated aortic root. FINDINGS: There is a minimal pleural effusion on the right side with minimal adjacent atelectasis seen. There is a small pericardial effusion and pericardial thickening is seen. There is no mediastinal mass or significantly enlarged lymph node. The ascending aorta is dilated measuring 5.2 cm in maximum dimension measured on the candy cane obliqued view perpendicular to the long axis of the aorta. The aortic root is not dilated. The aortic arch is normal in caliber. The descending aorta is also normal in caliber. The heart is mildly enlarged. Prominent coronary artery atherosclerotic calcifications are noted. Sections in the upper abdomen demonstrate a small amount of ascites. The liver contour is slightly lobulated which is suggestive of underlying cirrhosis. The spleen is moderately enlarged measuring 16.5 cm in length. The osseous structures demonstrate mild degenerative changes. IMPRESSION: 1. There is an ascending aortic aneurysm measuring up to 5.2 cm in caliber. 2. There is a small pericardial effusion. Also, pericardial thickening is seen which could relate to current or prior pericarditis. 3. Tiny right pleural effusion and minimal adjacent atelectasis in the right lung base. 4. Small ascites. 5. Moderate splenomegaly. Dictated by: Dictated on workstation # [id number]
== END ==
LOC: RAD 10:02
PROVIDERS: ATTEND Nurse Practitioner
DX: I31.3 Pericardial effusion (noninflammatory); I71.4 Abdominal aortic aneurysm, without rupture; R16.1 Splenomegaly, not elsewhere classified; R18.8 Other ascites
CPT/HCPCS: 71250

== ENCOUNTER 2017-08-26 07:51 | Outpatient (RCR) | payer MEDICARE, OTHER, BC ==
[2017-08-17] MEDS: CATHETER FLUSH 10 ML SYR IV PRN (12:55)
[2017-08-17] MEDS: diphenhydrAMINE 50 MG/ML INJ (BENADRYL) IV PRN (12:55)
[2017-08-17] MEDS: ACETAMINOPHEN 500 MG TAB (TYLENOL) PO PRN (13:01)
[2017-08-17] MEDS: IRON SUCROSE 200 MG/NS 100 ML (IVPB) IV SCH ×2 (13:08)
[2017-08-17 14:18] VITALS: BP 130/89
[2017-08-19] MEDS: ACETAMINOPHEN 500 MG TAB (TYLENOL) PO PRN (08:43)
[2017-08-19 08:44] VITALS: BP 134/88
[2017-08-19 08:50] VITALS: BP 134/88
[2017-08-19] MEDS: diphenhydrAMINE 50 MG/ML INJ (BENADRYL) IV PRN (08:50)
[2017-08-19] MEDS: IRON SUCROSE 200 MG/NS 100 ML (IVPB) IV SCH ×2 (09:11)
[2017-08-22] MEDS: CATHETER FLUSH 10 ML SYR IV PRN (08:50)
[2017-08-22] MEDS: ACETAMINOPHEN 500 MG TAB (TYLENOL) PO PRN (08:50)
[2017-08-22] MEDS: diphenhydrAMINE 50 MG/ML INJ (BENADRYL) IV PRN (08:50)
[2017-08-22] MEDS: IRON SUCROSE 200 MG/NS 100 ML (IVPB) IV SCH ×2 (08:57)
[2017-08-22 09:46] VITALS: BP 138/88
[2017-08-24] MEDS: diphenhydrAMINE 50 MG/ML INJ (BENADRYL) IV PRN (10:00)
[2017-08-24] MEDS: ACETAMINOPHEN 500 MG TAB (TYLENOL) PO PRN (10:00)
[2017-08-24] MEDS: CATHETER FLUSH 10 ML SYR IV PRN (10:00)
[2017-08-24] MEDS: IRON SUCROSE 200 MG/NS 100 ML (IVPB) IV SCH ×2 (10:02)
[2017-08-24 10:34] VITALS: BP 134/85
[~2017-08-26] VITALS: Ht 182.9 cm; Wt 108.9 kg
[~2017-08-26 07:51] MED LIST changes: +ACETAMINOPHEN 500 MG TAB (TYLENOL) ONE; +LIDOCAINE 1% INJ 20 ML (XYLOCAINE) VIAL ONE; +diphenhydrAMINE 50 MG/ML INJ (BENADRYL) ONE
[2017-08-26] MEDS: CATHETER FLUSH 10 ML SYR IV PRN (08:25)
[2017-08-26] MEDS: ACETAMINOPHEN 500 MG TAB (TYLENOL) PO PRN (08:25)
[2017-08-26] MEDS: diphenhydrAMINE 50 MG/ML INJ (BENADRYL) IV PRN (08:25)
[2017-08-26] MEDS: IRON SUCROSE 200 MG/NS 100 ML (IVPB) IV SCH ×2 (08:26)
[2017-08-26 08:55] VITALS: BP 132/85
== END 2017-11-15 | disposition home or self-care (01) ==
LOC: SDC 07:51
PROVIDERS: ATTEND Internal Medicine Nephrology
DX: D50.9 Iron deficiency anemia, unspecified (principal); D63.1 Anemia in chronic kidney disease; N18.4 Chronic kidney disease, stage 4 (severe)
CPT/HCPCS: 96365; 96375

== ENCOUNTER 2017-08-29 09:49 | Outpatient (RCR) | payer MEDICARE, OTHER ==
[~2017-08-29 09:49] MED LIST changes: -ACETAMINOPHEN 500 MG TAB (TYLENOL) ONE; +DARBEPOETIN 25 MCG/ML (CANCER CTR) 1 ML VIAL SC SCH; -LIDOCAINE 1% INJ 20 ML (XYLOCAINE) VIAL ONE; -diphenhydrAMINE 50 MG/ML INJ (BENADRYL) ONE
[2017-08-29 10:17] LABS: BASOPHILS # (AUTO) 0.1 10^3/uL (0.0-0.1); BASOPHILS % (AUTO) 1 % (0-10); EOSINOPHILS # (AUTO) 0.1 10^3/uL (0.0-0.3); EOSINOPHILS % (AUTO) 1 % (0-10); HEMATOCRIT 36 % (40-54); HEMOGLOBIN 11.7 G/DL (13.3-17.7); LYMPHOCYTES # (AUTO) 0.6 X 10^3 (1.0-4.0); LYMPHOCYTES % (AUTO) 6 % (12-44); MEAN CORPUSCULAR HEMOGLOBIN 26 PG (25-34); MEAN CORPUSCULAR HGB CONC 32 G/DL (32-36); MEAN CORPUSCULAR VOLUME 80 FL (80-99); MEAN PLATELET VOLUME 9.9 FL (7.4-10.4); MONOCYTES # (AUTO) 0.9 X 10^3 (0.0-1.0); MONOCYTES % (AUTO) 10 % (0-12); NEUTROPHILS # (AUTO) 7.4 X 10^3 (1.8-7.8); NEUTROPHILS % (AUTO) 82 % (42-75); PLATELET COUNT 228 10^3/uL (130-400); RED BLOOD COUNT 4.53 10^6/uL (4.35-5.85); RED CELL DISTRIBUTION WIDTH 19.4 % (10.0-14.5)
== END 2017-11-27 | disposition home or self-care (01) ==
LOC: ONC 09:49
PROVIDERS: ATTEND Internal Medicine Hematology & Oncology
DX: D50.9 Iron deficiency anemia, unspecified (principal); D63.1 Anemia in chronic kidney disease; N18.4 Chronic kidney disease, stage 4 (severe)
CPT/HCPCS: 36415; 85025

== ENCOUNTER 2017-09-16 07:43 | Outpatient (RCR) | payer MEDICARE, OTHER ==
[2017-08-09 08:15] VITALS: BP 127/76
[2017-08-09 10:27] VITALS: BP 132/84
--- NOTE | 2017-08-09 11:20 | Diagnostic Imaging Report ---
EXAMINATION: Ultrasound-guided paracentesis. INDICATION: Ascites. CONSENT: Informed consent was obtained from the patient. The risks, benefits, potential complications and alternatives were reviewed and all questions answered to the patient's satisfaction. The patient's vital signs, cardiac rhythm, and pulse oximetry with observed throughout the procedure by qualified nursing personnel. Sedation/Medications: None. FINDINGS: ascites. PROCEDURE: After sterile preparation and draping, 1% lidocaine was utilized for local anesthesia. Following sterile preparation and local anesthetic and using 2 D real-time ultrasound for guidance, a 6.5 Fr sheath on a trocar needle was introduced into the peritoneal fluid collection in the right lower quadrant from an anterior approach. Images of needle position documented. Initial fluid return was thin, serous fluid. The sheath was advanced into the deepest fluid pocket and a total of 11.8 liters of michelle-colored fluid was then evacuated from the peritoneum without difficulty. No immediate complications. IMPRESSION: Successful ultrasound guided paracentesis. Dictated by: Dictated on workstation # [id number]
--- NOTE | 2017-08-15 11:16 | Diagnostic Imaging Report ---
EXAMINATION: Ultrasound-guided paracentesis. INDICATION: Ascites. CONSENT: Informed consent was obtained from the patient. The risks, benefits, potential complications and alternatives were reviewed and all questions answered to the patient's satisfaction. The patient's vital signs, cardiac rhythm, and pulse oximetry with observed throughout the procedure by qualified nursing personnel. Sedation/Medications: None. FINDINGS: ascites. PROCEDURE: After sterile preparation and draping, 1% lidocaine was utilized for local anesthesia. Following sterile preparation and local anesthetic and using 2 D real-time ultrasound for guidance, a 6.5 Fr sheath on a trocar needle was introduced into the peritoneal fluid collection in the left lower quadrant from an anterior approach. Images of needle position documented. Initial fluid return was thin, serous fluid. The sheath was advanced into the deepest fluid pocket and a total of 15 liters of michelle-colored fluid was then evacuated from the peritoneum without difficulty. No immediate complications. IMPRESSION: Successful ultrasound guided paracentesis. Dictated by: Dictated on workstation # [id number]
[2017-08-19 09:43] VITALS: BP 127/71
--- NOTE | 2017-08-19 10:20 | Diagnostic Imaging Report ---
EXAMINATION: Ultrasound-guided paracentesis. INDICATION: Ascites. CONSENT: Informed consent was obtained from the patient. The risks, benefits, potential complications and alternatives were reviewed and all questions answered to the patient's satisfaction. The patient's vital signs, cardiac rhythm, and pulse oximetry with observed throughout the procedure by qualified nursing personnel. Sedation/Medications: Albumin 50 gm IV. FINDINGS: ascites. PROCEDURE: After sterile preparation and draping, 1% lidocaine was utilized for local anesthesia. Following sterile preparation and local anesthetic and using 2 D real-time ultrasound for guidance, a 6.5 Fr sheath on a trocar needle was introduced into the peritoneal fluid collection in the right lower quadrant from an anterior approach. Images of needle position documented. Initial fluid return was thin, serous fluid. The sheath was advanced into the deepest fluid pocket and a total of 11.5 liters of michelle-colored fluid was then evacuated from the peritoneum without difficulty. No immediate complications. IMPRESSION: Successful ultrasound guided paracentesis. Dictated by: Dictated on workstation # [id number]
--- NOTE | 2017-08-22 16:59 | Diagnostic Imaging Report ---
EXAMINATION: Ultrasound-guided paracentesis. INDICATION: Ascites. CONSENT: Informed consent was obtained from the patient. The risks, benefits, potential complications and alternatives were reviewed and all questions answered to the patient's satisfaction. The patient's vital signs, cardiac rhythm, and pulse oximetry with observed throughout the procedure by qualified nursing personnel. Sedation/Medications: Albumin 50 gm IV. FINDINGS: ascites. PROCEDURE: After sterile preparation and draping, 1% lidocaine was utilized for local anesthesia. Following sterile preparation and local anesthetic and using 2 D real-time ultrasound for guidance, a 6.5 Fr sheath on a trocar needle was introduced into the peritoneal fluid collection in the right lower quadrant from an anterior approach. Images of needle position documented. Initial fluid return was thin, serous fluid. The sheath was advanced into the deepest fluid pocket and a total of 10 liters of michelle-colored fluid was then evacuated from the peritoneum without difficulty. No immediate complications. IMPRESSION: Successful ultrasound guided paracentesis. Dictated by: Dictated on workstation # [id number]
[2017-08-29 09:29] VITALS: BP 130/71
--- NOTE | 2017-08-29 09:58 | Diagnostic Imaging Report ---
EXAMINATION: Ultrasound-guided paracentesis. INDICATION: Ascites. CONSENT: Informed consent was obtained from the patient. The risks, benefits, potential complications and alternatives were reviewed and all questions answered to the patient's satisfaction. The patient's vital signs, cardiac rhythm, and pulse oximetry with observed throughout the procedure by qualified nursing personnel. Sedation/Medications: None. FINDINGS: ascites. PROCEDURE: After sterile preparation and draping, 1% lidocaine was utilized for local anesthesia. Following sterile preparation and local anesthetic and using 2 D real-time ultrasound for guidance, a 6.5 Fr sheath on a trocar needle was introduced into the peritoneal fluid collection in the right lower quadrant from an anterior approach. Images of needle position documented. Initial fluid return was thin, serous fluid. The sheath was advanced into the deepest fluid pocket and a total of 7.6 liters of michelle-colored fluid was then evacuated from the peritoneum without difficulty. No immediate complications. IMPRESSION: Successful ultrasound guided paracentesis. Dictated by: Dictated on workstation # [id number]
[2017-09-02] MEDS: ALBUMIN 25% 25 GM/100 ML 100 ML IV SCH ×2 (08:54→09:19)
--- NOTE | 2017-09-02 12:25 | Diagnostic Imaging Report ---
EXAMINATION: Ultrasound-guided paracentesis. INDICATION: Ascites. CONSENT: Informed consent was obtained from the patient. The risks, benefits, potential complications and alternatives were reviewed and all questions answered to the patient's satisfaction. The patient's vital signs, cardiac rhythm, and pulse oximetry with observed throughout the procedure by qualified nursing personnel. Sedation/Medications: Albumin 50 gm IV. FINDINGS: ascites. PROCEDURE: After sterile preparation and draping, 1% lidocaine was utilized for local anesthesia. Following sterile preparation and local anesthetic and using 2 D real-time ultrasound for guidance, a 6.5 Fr sheath on a trocar needle was introduced into the peritoneal fluid collection in the left lower quadrant from an anterior approach. Images of needle position documented. Initial fluid return was thin, serous fluid. The sheath was advanced into the deepest fluid pocket and a total of 11 liters of michelle-colored fluid was then evacuated from the peritoneum without difficulty. No immediate complications. IMPRESSION: Successful ultrasound guided paracentesis. Dictated by: Dictated on workstation # [id number]
--- NOTE | 2017-09-06 11:25 | Diagnostic Imaging Report ---
EXAMINATION: Ultrasound-guided paracentesis. INDICATION: Ascites. CONSENT: Informed consent was obtained from the patient. The risks, benefits, potential complications and alternatives were reviewed and all questions answered to the patient's satisfaction. The patient's vital signs, cardiac rhythm, and pulse oximetry with observed throughout the procedure by qualified nursing personnel. Sedation/Medications: None. FINDINGS: ascites. PROCEDURE: After sterile preparation and draping, 1% lidocaine was utilized for local anesthesia. Following sterile preparation and local anesthetic and using 2 D real-time ultrasound for guidance, a 6.5 Fr sheath on a trocar needle was introduced into the peritoneal fluid collection in the left lower quadrant from an anterior approach. Images of needle position documented. Initial fluid return was thin, serous fluid. The sheath was advanced into the deepest fluid pocket and a total of 11 liters of michelle-colored fluid was then evacuated from the peritoneum without difficulty. No immediate complications. IMPRESSION: Successful ultrasound guided paracentesis. Dictated by: Dictated on workstation # [id number]
--- NOTE | 2017-09-09 12:42 | Diagnostic Imaging Report ---
EXAMINATION: Ultrasound-guided paracentesis. INDICATION: Ascites. CONSENT: Informed consent was obtained from the patient. The risks, benefits, potential complications and alternatives were reviewed and all questions answered to the patient's satisfaction. The patient's vital signs, cardiac rhythm, and pulse oximetry with observed throughout the procedure by qualified nursing personnel. Sedation/Medications: None.. FINDINGS: ascites. PROCEDURE: After sterile preparation and draping, 1% lidocaine was utilized for local anesthesia. Following sterile preparation and local anesthetic and using 2 D real-time ultrasound for guidance, a 6.5 Fr sheath on a trocar needle was introduced into the peritoneal fluid collection in the right lower quadrant from an anterior approach. Images of needle position documented. Initial fluid return was thin, serous fluid. The sheath was advanced into the deepest fluid pocket and a total of 10 liters of michelle-colored fluid was then evacuated from the peritoneum without difficulty. No immediate complications. IMPRESSION: Successful ultrasound guided paracentesis. Dictated by: Dictated on workstation # [id number]
--- NOTE | 2017-09-12 11:50 | Diagnostic Imaging Report ---
EXAMINATION: Ultrasound-guided paracentesis. INDICATION: Ascites. CONSENT: Informed consent was obtained from the patient. The risks, benefits, potential complications and alternatives were reviewed and all questions answered to the patient's satisfaction. The patient's vital signs, cardiac rhythm, and pulse oximetry with observed throughout the procedure by qualified nursing personnel. Sedation/Medications: None.. FINDINGS: ascites. PROCEDURE: After sterile preparation and draping, 1% lidocaine was utilized for local anesthesia. Following sterile preparation and local anesthetic and using 2 D real-time ultrasound for guidance, a 6.5 Fr sheath on a trocar needle was introduced into the peritoneal fluid collection in the left lower quadrant from an anterior approach. Images of needle position documented. Initial fluid return was thin, serous fluid. The sheath was advanced into the deepest fluid pocket and a total of 8.5 liters of slightly cloudy yellow fluid was then evacuated from the peritoneum without difficulty. No immediate complications. IMPRESSION: Successful ultrasound guided paracentesis. Dictated by: Dictated on workstation # [id number]
[~2017-09-16] VITALS: Ht 182.9 cm; Wt 108.9 kg
[~2017-09-16 07:43] MED LIST changes: +ALBUMIN 25% 25 GM/100 ML 200 ML IV ONE; -DARBEPOETIN 25 MCG/ML (CANCER CTR) 1 ML VIAL SC SCH; +LIDOCAINE 1% INJ 20 ML (XYLOCAINE) VIAL INJ ONE; +LIDOCAINE 1% INJ 20 ML (XYLOCAINE) VIAL ONE
[2017-09-16] MEDS ORDERED: LIDOCAINE 1% INJ 20 ML (XYLOCAINE) VIAL ONE (07:52)
[2017-09-16] MEDS ORDERED: LIDOCAINE 1% INJ 20 ML (XYLOCAINE) VIAL INJ ONE (08:30)
--- NOTE | 2017-09-16 10:08 | Diagnostic Imaging Report ---
EXAMINATION: Ultrasound-guided paracentesis. INDICATION: Ascites. CONSENT: Informed consent was obtained from the patient. The risks, benefits, potential complications and alternatives were reviewed and all questions answered to the patient's satisfaction. The patient's vital signs, cardiac rhythm, and pulse oximetry with observed throughout the procedure by qualified nursing personnel. Sedation/Medications: None.. FINDINGS: ascites. PROCEDURE: After sterile preparation and draping, 1% lidocaine was utilized for local anesthesia. Following sterile preparation and local anesthetic and using 2 D real-time ultrasound for guidance, a 6.5 Fr sheath on a trocar needle was introduced into the peritoneal fluid collection in the right lower quadrant from an anterior approach. Images of needle position documented. Initial fluid return was thin, serous fluid. The sheath was advanced into the deepest fluid pocket and a total of 11.4 liters of slightly cloudy yellow fluid was then evacuated from the peritoneum without difficulty. No immediate complications. IMPRESSION: Successful ultrasound guided paracentesis. Dictated by: Dictated on workstation # [id number]
== END 2017-11-07 | disposition home or self-care (01) ==
LOC: RAD 07:43
PROVIDERS: ATTEND Family Medicine
DX: R18.8 Other ascites (principal); N19 Unspecified kidney failure
CPT/HCPCS: 49083

== ENCOUNTER 2017-10-02 04:04 | Emergency (ER) | payer MEDICARE, OTHER ==
[~2017-10-02] VITALS: Ht 182.9 cm; Wt 108.9 kg
[~2017-10-02 04:04] MED LIST changes: -ALBUMIN 25% 25 GM/100 ML 200 ML IV ONE; -LIDOCAINE 1% INJ 20 ML (XYLOCAINE) VIAL INJ ONE; -LIDOCAINE 1% INJ 20 ML (XYLOCAINE) VIAL ONE
[2017-10-02] MEDS ORDERED: fentaNYL INJECTION 100 MCG/2 ML AMP IVP STA ×3 (04:37→06:36)
--- NOTE | 2017-10-02 04:46 | ED Lower Extremity ---
General Chief Complaint: Lower Extremity Stated Complaint: RT LEG PAIN Nursing Triage Note: Was at [facility]- had stent placed 09/30/17 and received dialysis on 10/01/17 and was dc'd same day at 1800. woke with severe rt leg pain, 3+ pitting edema to just below knee. pulse palpated. rt groin bruised but soft, dressing in place, no bleeding Nursing Sepsis Screen: No Definite Risk Source: patient, EMS History of Present Illness Time seen by provider: 04:25 Initial Comments PT ARRIVES VIA EMS FROM HOME PT HAS BEEN HOSPITALIZED AT [facility] IN FOR THE LAST 2 WEEKS ORIGINALLY WENT THERE FOR EVALUATION FOR POSSIBLE LIVER AND KIDNEY TRANSPLANT DURING COURSE OF EVALUATION, PT WAS FOUND TO HAVE CARDIAC DISEASE AND UNDERWENT CARDIAC CATH WITH 2 STENTS LAST Tuesday09/23/17--APPROACH IN RIGHT GROIN--STILL HAS DRESSING IN PLACE. HE WAS STARTED ON DIALYSIS THIS PAST WEEK, AND HAD IT EVERY DAY THIS WEEK-- CENTRAL LINE/DIALYSIS CATHETER PT STATES HE LITERALLY JUST GOT HOME FROM [facility] AND CALLED EMS--STATES HE BEGAN HAVING SEVERE PAIN AND INCREASED SWELLING IN RIGHT LEG ON THE WAY HOME. PT STATES HE HAS BEEN HAVING PAIN IN THIS LEG FOR THE LAST 2 WEEKS, ALSO HAVING SOME ACHING IN LEFT LEG WELL--THOUGHT IT WAS FROM ALL THE FLUID HE HAS BEEN RETAINING. BUT THIS PAIN IS SEVERE AND "UNBEARABLE" AND NOT LIKE ANY LEG PAIN HE HAS HAD BEFORE NO PARESTHESIAS OR MOTOR DEFICITS--PT STATES HE HAS HAD PRIOR CVA WITH RIGHT SIDE AFFECTED AND HAS SLIGHT NUMBNESS ALL THE TIME, BUT NOTHING DIFFERENT THAN USUAL PT HAS NOT TAKEN ANYTHING FOR PAIN PCP: DR. BARILLAS NEPHROLOGY: DR. Carlson" IN [place] [facility]: DR. BARRY CARDIOLOGY: DR. LEMA Allergies and Home Medications Allergies Coded Allergies: No Known Drug Allergies (Unverified , 10/02/17) Home Medications Atorvastatin Calcium 20 Mg Tablet, 20 MG PO DAILY, (Reported) Insulin Determir 1,000 Units/10 Ml Soln, 12 UNITS SQ BID, (Reported) Constitutional: no symptoms reported Respiratory: no symptoms reported, No short of breath Cardiovascular: No chest pain, edema, No palpitations Gastrointestinal: no symptoms reported Musculoskeletal: see HPI Skin: no symptoms reported Psychiatric/Neurological: No Symptoms Reported, Pre-Existing Deficit Past Ioebngm-Lbfdle-Aanozw Hx Patient Social History Alcohol Use: Past History (MODERATE USE IN PAST) Alcohol Beverage of Choice: Vodka Recreational Drug Use: No Smoking Status: Former Smoker (2 PPD) Type Used: Cigarettes Former Smoker, Quit: Jul 08, 2017 2nd Hand Smoke Exposure: No Recent Foreign Travel: No Contact w/Someone Who Travel: No Recent Infectious Disease Expo: No Recent Hopitalizations: Yes (dc'd 10/01/17 [facility]- cardiac stent X 2 and dialysis) Physical Abuse: No Sexual Abuse: No Mistreated: No Fear: No Immunizations Up To Date Tetanus Booster (TDap): More than 5yrs Date of Influenza Vaccine: Aug 07, 2017 Seasonal Allergies Seasonal Allergies: Yes Surgeries History of Surgeries: Yes (EYE SURGERY FOR RETINAL BLEEDING BILATERALLY; PARACENTESIS TWICE WEEKLY OF 10/02/17; CENTRAL DIALYSIS CATHETER; CARDIAC CATH WITH STENTS X 2 09/23/17--[facility]) Surgeries: Cardiac, Coronary Stent, Eye Surgery Respiratory History of Respiratory Disorde: No Cardiovascular History of Cardiac Disorders: Yes (STENTS X 2 09/23/17; THORACIC AORTIC ANEURYSM-NO REPAIR-STATES HE HAD A HEART ATTACK AFTER HIS STROKE AND/OR GI BLEED ) Cardiac Disorders: Aneurysm, Chronic Edema/Swelling, Coronary Artery Disease, Heart Attack, High Cholesterol, Hypertension Neurological History of Neurological Disord: Yes (CVA WITH RIGHT SIDE PARALYSIS--RESOLVED) Neurological Disorders: Stroke Reproductive System Hx Reproductive Disorders: No Genitourinary History of Genitourinary Disor: Yes (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/17--AUTOIMMUNE KIDNEY DISEASE/GLOMERULONEPHRITIS) Genitourinary Disorders: Kidney Infection, Renal Failure, Dialysis Gastrointestinal History of Gastrointestinal Di: Yes (GI BLEED FROM STEROIDS TO TREAT KIDNEY DISEASE; END STAGE LIVER FAILURE--ASCITES) Gastrointestinal Disorders: Liver Disease/Jaundice, Gastrointestinal Bleed, Ulcer Musculoskeletal History of Musculoskeletal Dis: No Endocrine History of Endocrine Disorders: Yes Endocrine Disorders: Diabetes, Insulin dep HEENT History of HEENT Disorders: Yes (RETINAL BLEEDS BILATERALLY) Cancer History of Cancer: No Psychosocial History of Psychiatric Problem: No Suicide Risk Score: 0 Integumentary History of Skin or Integumenta: Yes Skin/Integumentary Disorders: Pruritis, Recent Skin Changes Blood Transfusions History of Blood Disorders: Yes (SEVERAL BLOOD TRANSFUSIONS DUE TO BOTH GI BLEEDS AND ANEMIA FROM CHRONIC RENAL FAILURE) Adverse Reaction to a Blood Tr: No Physical Exam Vital Signs Vital Sign - Last 12Hours 10/02/17 04:07 Temp 97.5 Pulse 103 Resp 18 B/P (MAP) 95/63 Pulse Ox 97 Capillary Refill : Less Than 3 Seconds General Appearance: no apparent distress, obese Cardiovascular: regular rate, rhythm Respiratory: normal breath sounds, no respiratory distress Gastrointestinal: non tender, distended (MARKED ASCITES), other (UNABLE TO DETERMINE IF ORGANOMEGALY OR MASS IS PRESENT DUE TO ASCITES/ABDOMEN DISTENTION) Legs: bilateral leg other (RIGHT LEG WITH 3+ EDEMA, MILD DIFFUSE ERYTHEMA, MARKED TENDERNESS/EXAGGERATED PAIN RESPONSE TO SLIGHTEST TOUCH; RIGHT FOOT VERY COOL, BUT NOT PALE/DUSKY. THE REST OF RIGHT LEG IS WARM TO TOUCH. LEFT LEG WITH 2+ EDEMA. UNABLE TO PALPATE PULSES IN EITHER FOOT. PT HAS EXTENSIVE CHRONIC VENOUS STASIS CHANGES BILATERALLLY WITH SCABBING AROUND LOWER LEGS, AND FISSURING DIFFUSELY TO BILATERAL LOWER LEGS. HAS BLISTER TO LATERAL ASPECT OF RIGHT FOOT. 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, no motor/sensory deficits, alert, normal mood/affect, oriented x 3 Skin: pallor (SALLOW), other (SKIN CHANGES TO LEGS BILATERALLY) Progress/Results/Core Measures Results/Orders Lab Results Laboratory Tests Test 10/02/17 04:41 Range/Units White Blood Count 18.4 H 4.3-11.0 10^3/uL Red Blood Count 4.21 L 4.35-5.85 10^6/uL Hemoglobin 11.7 L 13.3-17.7 G/DL Hematocrit 36 L 40-54 % Mean Corpuscular Volume 85 80-99 FL Mean Corpuscular Hemoglobin 28 25-34 PG Mean Corpuscular Hemoglobin Concent 33 32-36 G/DL Red Cell Distribution Width 21.6 H 10.0-14.5 % Platelet Count 135 130-400 10^3/uL Mean Platelet Volume 11.0 H 7.4-10.4 FL Neutrophils (%) (Auto) 90 H 42-75 % Lymphocytes (%) (Auto) 3 L 12-44 % Monocytes (%) (Auto) 7 0-12 % Eosinophils (%) (Auto) 0 0-10 % Basophils (%) (Auto) 0 0-10 % Neutrophils # (Auto) 16.6 H 1.8-7.8 X 10^3 Lymphocytes # (Auto) 0.5 L 1.0-4.0 X 10^3 Monocytes # (Auto) 1.2 H 0.0-1.0 X 10^3 Eosinophils # (Auto) 0.0 0.0-0.3 10^3/uL Basophils # (Auto) 0.0 0.0-0.1 10^3/uL Neutrophils % (Manual) 69 % Lymphocytes % (Manual) 4 % Monocytes % (Manual) 9 % Eosinophils % (Manual) 2 % Band Neutrophils 16 % Polychromasia SLIGHT Poikilocytosis SLIGHT Anisocytosis MODERATE Microcytosis SLIGHT Macrocytosis SLIGHT Spherocytes SLIGHT Helmet Cells SLIGHT Prothrombin Time 16.9 H 12.2-14.7 SEC INR Comment 1.4 0.8-1.4 Activated Partial Thromboplast Time 33 24-35 SEC Sodium Level 131 L 135-145 MMOL/L Potassium Level 4.4 3.6-5.0 MMOL/L Chloride Level 94 L 98-107 MMOL/L Carbon Dioxide Level 21 21-32 MMOL/L Anion Gap 16 H 5-14 MMOL/L Blood Urea Nitrogen 50 H 7-18 MG/DL Creatinine 3.87 H 0.60-1.30 MG/DL Estimat Glomerular Filtration Rate 17 BUN/Creatinine Ratio 13 Glucose Level 218 H 70-105 MG/DL Calcium Level 8.3 L 8.5-10.1 MG/DL Total Bilirubin 1.3 H 0.1-1.0 MG/DL Aspartate Amino Transf (AST/SGOT) 17 5-34 U/L Alanine Aminotransferase (ALT/SGPT) 19 0-55 U/L Alkaline Phosphatase 95 40-136 U/L Total Protein 5.3 L 6.4-8.2 GM/DL Albumin 3.3 3.2-4.5 GM/DL My Orders Orders - JD,JATIN K DO Saline Lock/Iv-Start (10/02/17 04:37) Monitor-Rhythm Ecg Trace Only (10/02/17 04:37) Cbc With Automated Diff (10/02/17 04:37) Comprehensive Metabolic Panel (10/02/17 04:37) Protime With Inr (10/02/17 04:37) Partial Thromboplastin Time (10/02/17 04:37) Us Right Low Ext [id number] (10/02/17 04:37) Us Venous Lower Ext Rt (10/02/17 04:37) Fentanyl Injection (Sublimaze Injection (10/02/17 04:37) Saline Lock/Iv-Start (10/02/17 04:48) Ns (Ivpb) (Sodium Chloride 0.9%) (10/02/17 04:48) Manual Differential (10/02/17 04:41) Fentanyl Injection (Sublimaze Injection (10/02/17 05:28) Lactic Acid Analyzer (10/02/17 06:18) Blood Culture (10/02/17 06:18) Piperacillin Sodium/Tazobactam (Zosyn Vi (10/02/17 06:30) Vancomycin Injection (Vancomycin Injecti (10/02/17 06:30) Fentanyl Injection (Sublimaze Injection (10/02/17 06:36) Medications Given in ED Current Medications Medications Dose Ordered Sig/Shima Route Start Time Stop Time Status Last Admin Dose Admin Piperacillin Sod/ Tazobactam Sod 4.5 gm/Sodium Chloride 100 ml @ 200 mls/hr ONCE ONCE IV 10/02/17 06:30 10/02/17 06:59 10/02/17 06:40 200 MLS/HR Sodium Chloride 250 ml @ 0 mls/hr Q0M ONCE IV 10/02/17 04:48 10/02/17 05:33 DC 10/02/17 04:53 250 MLS/HR Vital Signs/I&O Vital Sign - Last 12Hours 10/02/17 10/02/17 04:07 04:59 Temp 97.5 Pulse 103 87 Resp 18 16 B/P (MAP) 95/63 85/53 Pulse Ox 97 99 Blood Pressure Mean: 74 Progress Note : Progress Note PT HAD ONE EPISODE OF DROP IN BP TO 70'S SYSTOLIC, GIVEN 250 ML SALINE BOLUS WITH BP UP TO MID 80'S TO 90'S SYSTOLIC PT STATES HIS BP IS NEVER OVER 100 AND IS ALWAYS IN 80'S TO 90'S SYSTOLIC. PAIN EASED WITH FENTANYL Diagnostic Imaging Comments ARTERIAL AND VENOUS DOPPLER RIGHT LEG--NORMAL ARTERIAL AND VENOUS FLOW, NO THROMBUS. PER TECH REPORT @ 0600 PER [employer] VIA FAX AT [phone] AND [phone] Reviewed: Reviewed by Me Departure Communication (Admissions) Progress Notes 06--CONTACTED [facility] 0607--SPOKE WITH DR. PADRON, AMMONIUM HYDROXIDE OPERATOR . HE ADVISES TO CALL TRANSFER TEAM TO SEND PT BACK THERE 0609--CALLED [facility] TRANSFER LINE. PAGING DR. TREVON BROOKE, TRANSFER PHYSICIAN 0615--SPOKE WITH DR. BROOKE. ACCEPTS PT FOR ADMIT. ADVISES ZOSYN AND VANCOMYCIN 0630--CARE TURNED OVER TO DR. TATE, TRANSFER PENDING Impression Impression: Primary Impression: Cellulitis of right leg Additional Impressions: ESRD (end stage renal disease) on dialysis END STAGE LIVER FAILURE Disposition: XFER SHT-TRM HOSP Condition: Improved Departure-Patient Inst. Referrals: ESME BARILLAS MD (PCP/Family) Primary Care Physician JATIN MILES DO Oct 02, 2017 04:46
[2017-10-02] MEDS ORDERED: NS (IVPB) 250 ML IV ONE (04:48)
[2017-10-02 04:53] LABS: BASOPHILS % (AUTO) 0 % (0-10); EOSINOPHILS % (AUTO) 0 % (0-10); LYMPHOCYTES # (AUTO) 0.5 X 10^3 (1.0-4.0); LYMPHOCYTES % (AUTO) 3 % (12-44); MEAN CORPUSCULAR HEMOGLOBIN 28 PG (25-34); MEAN CORPUSCULAR HGB CONC 33 G/DL (32-36); MEAN CORPUSCULAR VOLUME 85 FL (80-99); MONOCYTES # (AUTO) 1.2 X 10^3 (0.0-1.0); MONOCYTES % (AUTO) 7 % (0-12); NEUTROPHILS # (AUTO) 16.6 X 10^3 (1.8-7.8); NEUTROPHILS % (AUTO) 90 % (42-75); PLATELET COUNT 135 10^3/uL (130-400); RED BLOOD COUNT 4.21 10^6/uL (4.35-5.85); RED CELL DISTRIBUTION WIDTH 21.6 % (10.0-14.5); WHITE BLOOD COUNT 18.4 10^3/uL (4.3-11.0)
[2017-10-02 04:59] VITALS: BP 85/53
[2017-10-02 05:01] LABS: INR 1.4 (0.8-1.4); PROTHROMBIN TIME PATIENT 16.9 SEC (12.2-14.7)
[2017-10-02 05:09] LABS: ALBUMIN 3.3 GM/DL (3.2-4.5); BILIRUBIN,TOTAL 1.3 MG/DL (0.1-1.0); CALCIUM 8.3 MG/DL (8.5-10.1); CREATININE SERUM 3.87 MG/DL (0.60-1.30); POTASSIUM 4.4 MMOL/L (3.6-5.0); TOTAL PROTEIN 5.3 GM/DL (6.4-8.2)
[2017-10-02 05:32] LABS: BAND NEUTROPHILS 16 %; EOSINOPHILS % (MANUAL) 2 %; LYMPHOCYTES % (MANUAL) 4 %; NEUTROPHILS % (MANUAL) 69 %
[2017-10-02 05:33] LABS: ANISOCYTOSIS MODERATE; MICROCYTOSIS SLIGHT; POIKILOCYTOSIS SLIGHT; POLYCHROMASIA SLIGHT; SPHEROCYTES SLIGHT
[2017-10-02] MEDS ORDERED: VANCOMYCIN INJECTION 1,000 MG in NS (IVPB) 250 ML IV ONE (06:30)
[2017-10-02] MEDS ORDERED: PIPERACILLIN SODIUM/TAZOBACTAM 4.5 GM in NS (IVPB) 100 ML IV ONE (06:30)
[2017-10-02] MEDS ORDERED: HYDROmorphone (DILAUDID) 2 MG/ML VIAL ONE (07:38)
[2017-10-02] MEDS ORDERED: HYDROmorphone (DILAUDID) 2 MG/ML VIAL IVP ONE (08:00)
--- NOTE | 2017-10-02 08:19 | Diagnostic Imaging Report ---
INDICATION: Redness, pain and swelling in the right leg. Recent heart catheterization. Color Doppler velocity and spectral waveform analysis of the arteries of the right lower extremity was performed. There are normal triphasic waveforms and velocities seen throughout the arteries of the right lower extremity with no occlusions or hemodynamically significant stenoses seen. There is no pseudoaneurysm or hematoma in the right groin demonstrated. IMPRESSION: No significant abnormality is seen. Dictated by: Dictated on workstation # [id number]
--- NOTE | 2017-10-02 08:20 | Diagnostic Imaging Report ---
PROCEDURE: US right lower extremity venous. TECHNIQUE: Multiple real-time grayscale images were obtained over the right lower extremity in various projections. Additional duplex Doppler and color Doppler images were also obtained. INDICATION: Right leg pain and swelling. FINDINGS: Examination of deep venous system of the right leg shows normal augmentation, compression and color Doppler flow with no deep venous thrombosis or other abnormality seen. IMPRESSION: No deep venous thrombosis is seen. Dictated by: Dictated on workstation # [id number]
[2017-10-02 08:59] VITALS: BP 94/47
== END 2017-10-02 08:59 | disposition short-term general hospital (02) ==
LOC: EDUNIT# 04:04 → ER 04:05
DX: L03.115 Cellulitis of right lower limb (principal); E11.22 Type 2 diabetes mellitus with diabetic chronic kidney disease; I12.0 Hypertensive chronic kidney disease with stage 5 chronic kidney disease or end stage renal disease; N18.6 End stage renal disease; K72.90 Hepatic failure, unspecified without coma; I25.10 Atherosclerotic heart disease of native coronary artery without angina pectoris; I25.2 Old myocardial infarction; R60.0 Localized edema; E78.00 Pure hypercholesterolemia, unspecified; Z87.891 Personal history of nicotine dependence; Z95.5 Presence of coronary angioplasty implant and graft; Z86.73 Personal history of transient ischemic attack (TIA), and cerebral infarction without residual deficits; Z87.11 Personal history of peptic ulcer disease; Z99.2 Dependence on renal dialysis; Z79.4 Long term (current) use of insulin
CPT/HCPCS: 36415; 80053; 83605; 85007; 85027; 85610; 85730; 87040; 93041; 93926